=== PATIENT | female | born 1970 ===

== ENCOUNTER 2023-03-06 06:43 | Day surgery (SDC) | payer OTHER ==
[2023-03-02 08:41] LABS: HEMATOCRIT 37.1 % (36.0-45.00); HEMOGLOBIN 11.9 g/dL (12.0-15.00); MEAN CELL VOLUME 84.2 fL (80.00-100.00); MEAN CORPUSCULAR HGB CONC 32.1 g/dl (32.0-36.0); PLATELET COUNT 276 K/uL (150-450); RED CELL DISTRIBUTION WIDTH 13.9 % (11.5-14.5)
[2023-03-02 09:16] LABS: INR 1.09; PROTHROMBIN TIME 11.4 SECONDS (9.0-11.5)
[2023-03-02 09:22] LABS: ALBUMIN 4.2 gm/dL (3.4-5.0); BILIRUBIN TOTAL 0.33 mg/dL (0.3-1.2); CALCIUM 9.1 mg/dL (8.5-10.1); CREATININE SERUM 0.92 mg/dL (0.55-1.02); GFR 63.86; TOTAL PROTEIN 7.2 gm/dL (6.4-8.2)
[2023-03-02 10:20] LABS: URINE APPEARANCE Clear; URINE BILIRRUBIN Negative (NEGATIVE); URINE BLOOD Small; URINE COLOR Yellow; URINE GLUCOSE Negative (NEGATIVE); URINE LEUKOCYTE Small; URINE NITRATE Negative; URINE PROTEIN Trace (NEGATIVE); URINE UROBILINOGEN 0.2 E.U./dl
[2023-03-02 10:21] LABS: URINE EPITHELIAL CELLS 22.8 uL (0.0-38.8); URINE RBC 8.6 uL (0.0-20.8); URINE WBC 61.2 uL (0.0-23.2)
[2023-03-02 10:24] LABS: URINE BACTERIA > 9821.5 uL (0.0-1933)
[~2023-03-06] VITALS: Ht 165.1 cm; Wt 68.0 kg
[~2023-03-06 06:43] MED LIST: HORIZANT600 MG PO; RESTORIL30 MG PO
== END 2023-03-06 13:55 | disposition home or self-care (01) ==
LOC: CIR.AMB 06:43
PROVIDERS: ATTEND Obstetrics & Gynecology
DX: N95.0 Postmenopausal bleeding (principal); N85.8 Other specified noninflammatory disorders of uterus; Z20.822 Contact with and (suspected) exposure to COVID-19

== ENCOUNTER 2023-03-13 11:03 | Emergency (ER) | payer OTHER ==
[~2023-03-13] VITALS: Ht 165.1 cm; Wt 68.9 kg
[2023-03-13 12:54] LABS: HEMATOCRIT 36.9 % (36.0-45.00); HEMOGLOBIN 12.2 g/dL (12.0-15.00); MEAN CORPUSCULAR HEMOGLOBIN 27.4 pg (27.00-32.0); MEAN CORPUSCULAR HGB CONC 33.1 g/dl (32.0-36.0); PLATELET COUNT 279 K/uL (150-450); RED BLOOD COUNT 4.45 M/uL (4.00-6.00)
[2023-03-13 13:12] LABS: CALCIUM 9.4 mg/dL (8.5-10.1); CREATININE SERUM 0.92 mg/dL (0.55-1.02); GFR 63.86; INR 1.06; PARTIAL THROMBOPLASTIN TIME 26.5 SECONDS (22.0-34.0); POTASSIUM 4.27 mEq/L (3.5-5.1); PROTHROMBIN TIME 11.1 SECONDS (9.0-11.5)
[2023-03-13 13:29] LABS: PH,URINE 5.5 (5.0-8.0); URINE APPEARANCE Cloudy; URINE BILIRRUBIN Negative (NEGATIVE); URINE BLOOD Large; URINE COLOR Orange; URINE GLUCOSE Negative (NEGATIVE); URINE LEUKOCYTE Small; URINE NITRATE Negative; URINE PROTEIN 30 (NEGATIVE)
[2023-03-13 13:30] LABS: URINE BACTERIA 50.3 uL (0.0-1933); URINE EPITHELIAL CELLS 12.8 uL (0.0-38.8); URINE WBC 20.7 uL (0.0-23.2)
[2023-03-13 13:41] LABS: URINE RBC > 10558.9 uL (0.0-20.8)
== END 2023-03-13 15:31 | disposition home or self-care (01) ==
LOC: ER 11:03
PROVIDERS: General Practice
DX: R10.84 Generalized abdominal pain (principal); N93.8 Other specified abnormal uterine and vaginal bleeding